=== PATIENT | male | born 1950 | race Caucasian/White ===

== ENCOUNTER 2017-07-20 08:36 | Emergency (ER) | payer MEDICARE, MEDICAID ==
[~2017-07-20] VITALS: Ht 185.4 cm; Wt 90.7 kg
--- NOTE | 2017-07-20 08:45 | NUR ---
PRESENTS TO ER C/O FLU SYMPTOMS, NAUSEA, VOMITING, DIARRHEA, SOB, COUGH, CONGESTION X 3 DAYS. ALSO C/O UPPER BODY ITCHINESS/REDNESS. PATIENT IS A/OX 4. BREATHING EVEN AND UNLABORED. NAD, VITALS STABLE. SAFETY AND COMFORT MEASURES IN PLACE. AWAITING MD ORDERS.
[2017-07-20] MEDS ORDERED: IV NS 0.9% 1,000 ML BAG IV ONE (09:00)
--- NOTE | 2017-07-20 09:05 | NUR ---
NEW IV STARTED ON RAC, 20 G. BLOOD DRAWN AND SENT TO LAB.
--- NOTE | 2017-07-20 09:10 | NUR ---
PATIENT MEDICATED PER MD ORDERS.
[2017-07-20 09:19] LABS: BASOPHILS % (AUTO) 0.3 % (0.0-2.0); EOSINOPHILS # (AUTO) 0.2 /CMM (0.0-0.7); EOSINOPHILS % (AUTO) 4.2 % (0.0-6.0); HEMATOCRIT 46 % (39-51); HEMOGLOBIN 15.7 g/dL (13.5-17.5); LYMPHOCYTES # (AUTO) 1.3 /CMM (0.8-4.8); LYMPHOCYTES % (AUTO) 31.7 % (20.0-44.0); MEAN CORPUSCULAR HEMOGLOBIN 30 PG (26.0-33.0); MEAN CORPUSCULAR HGB CONC 35 g/dl (31.0-36.0); MEAN CORPUSCULAR VOLUME 87 fL (80-96); MONOCYTES # (AUTO) 0.6 /CMM (0.1-1.30); MONOCYTES % (AUTO) 15.4 % (2.0-12.0); NEUTROPHILS # (AUTO) 1.9 /CMM (1.8-8.9); NEUTROPHILS % (AUTO) 48.4 % (43.0-81.0); PLATELET COUNT (AUTO) 130 /CMM (150-450); RED BLOOD CELL COUNT(AUTO) 5.22 MIL/uL (4.5-6.0)
[2017-07-20 09:25] LABS: CALCIUM, SERUM 8.5 mg/dL (8.5-10.1); CREATININE 1.2 mg/dL (0.6-1.3); POTASSIUM 3.8 mmol/L (3.5-5.1)
[2017-07-20 09:31] LABS: ALBUMIN 3.5 g/dL (3.4-5.0); BILIRUBIN,DIRECT 0.1 mg/dL (0.0-0.2); BILIRUBIN,TOTAL 0.4 mg/dL (0.2-1.0); TOTAL PROTEIN, SERUM 7.3 g/dL (6.4-8.2)
[2017-07-20] MEDS ORDERED: ALPR1TAB2 PO (09:36)
[2017-07-20] MEDS ORDERED: GABA-534 PO (09:36)
[2017-07-20] MEDS ORDERED: APIX5TAB PO (09:36)
[2017-07-20] MEDS ORDERED: IBUP200C5 PO (09:37)
[2017-07-20 10:00] VITALS: BP 134/76
--- NOTE | 2017-07-20 10:11 | NUR ---
IV removed. Catheter intact and site benign. Pressure and 4x4 applied to site. No bleeding noted. Patient discharged to home in stable condition. Written and verbal after care instructions given. Patient verbalizes understanding of instruction.
== END 2017-07-20 10:10 | disposition home or self-care (01) ==
LOC: ER 08:39
DX: B34.9 Viral infection, unspecified (principal); F17.210 Nicotine dependence, cigarettes, uncomplicated; Z79.01 Long term (current) use of anticoagulants
CPT/HCPCS: 36415; 71045; 80048; 80076; 85025; 96360; 99285; 99406; A4606; J7030; Z7610

== ENCOUNTER 2018-07-20 13:17 | Emergency (ER) | payer MEDICARE, MEDICAID ==
[~2018-07-20] VITALS: Ht 185.4 cm; Wt 93.0 kg
[~2018-07-20 13:17] MED LIST: ALPR1TAB2 PO; APIX5TAB PO; GABA-534 PO; IBUP200C5 PO
[2018-07-20 13:44] VITALS: BP 143/77
--- NOTE | 2018-07-20 13:51 | NUR ---
healthcare administration internship [facility] [phone]
[2018-07-20] MEDS ORDERED: HYDROCODONE/APAP 5/325MG 1 EACH TABLET PO ONE (14:30)
[2018-07-20] MEDS ORDERED: VALACYCLOVIR HCL 500 MG TABLET PO ONE (14:30)
[2018-07-20] MEDS ORDERED: predniSONE 20 MG TABLET PO ONE (14:30)
[2018-07-20] MEDS ORDERED: predniSONE 20 MG TABLET ONE (14:58)
[2018-07-20] MEDS ORDERED: HYDROCODONE/APAP 5/325MG 1 EACH TABLET ONE (14:58)
[2018-07-20] MEDS ORDERED: VALACYCLOVIR HCL 500 MG TABLET ONE (14:59)
== END 2018-07-20 16:56 | disposition home or self-care (01) ==
LOC: ER 13:24
DX: B02.9 Zoster without complications (principal); F17.210 Nicotine dependence, cigarettes, uncomplicated; Z90.89 Acquired absence of other organs
CPT/HCPCS: 99284; 99406; A4606; J7512